=== PATIENT | female | born 1940 | race Caucasian/White ===

== ENCOUNTER 2018-10-03 13:15 | Inpatient (IN) ==
[2018-09-28 11:05] LABS: Basophils # 0.1 10*3/uL (0.0-0.2); Basophils % 0.8 % (0.0-0.8); Eosinophils # 0.1 10*3/uL (0.0-0.87); Hemoglobin 11.4 GM/DL (12.0-16.0); Immature Granulocytes % 0.3 %; Immature Granulocytes Absolute 0.02 #; Lymphocytes # 1.3 10*3/uL (1.4-4.0); Lymphocytes % 21.2 % (21.3-54.2); Mean Corpuscular HGB Conc 30.8 GM/DL (32-36); Mean Corpuscular Hemoglobin 29 PG (27-34); Mean Corpuscular Volume 93.7 FL (87-102); Mean Platelet Volume 9.2 FL (9.6-12.0); Monocytes # 0.7 10*3/uL (0.11-0.8); Monocytes % 10.8 % (1.7-12.7); Neutrophils % 64.9 % (38.7-73.9); Platelet Count 214 T/CUMM (130-400); Red Blood Count 3.95 MC/CUMM (3.8-5.5); Red Cell Distribution Width 13.1 % (9.3-17.3); White Blood Count 6.1 T/CUMM (4-12)
[2018-09-28 11:42] LABS: Albumin 3.9 G/DL (3.4-5.0); Bilirubin,Total 0.6 MG/DL (0.2-1.0); Calcium 9.9 MG/DL (8.5-10.1); Osmolality,Calculated 281.8 MOS/KG (273-304); Potassium 5.1 MMOL/L (3.5-5.1); Total Protein 7.2 G/DL (6.4-8.3)
[~2018-10-03 13:15] MED LIST: ceFAZolin 1,000 MG in SYRINGE 1 EACH IV ONE
[2018-10-09] MEDS ORDERED: ceFAZolin 1,000 MG VIAL ONE (05:45)
[2018-10-09] MEDS ORDERED: LACTATED RINGERS 1,000 ML IV SCH (06:00)
[2018-10-09] MEDS ORDERED: HEPARIN/NACL 0.9% 2 UNITS/ML 500 ML IV ONE ×2 (07:05→10:27)
[2018-10-09] MEDS ORDERED: PHENYLEPHRINE DRIP 20 MG/250 ML PREMIX IV ONE (07:05)
[2018-10-09] MEDS ORDERED: SODIUM CHLORIDE 0.9% 1,000 ML IV ONE (07:05)
[2018-10-09] MEDS ORDERED: NITROGLYCERIN DRIP 50 MG/250 ML BOTTLE IV ONE (07:05)
[2018-10-09] MEDS ORDERED: LIDOCAINE 1% 20 ML VIAL ONE (07:48)
[2018-10-09] MEDS ORDERED: HEPARIN 5,000 UNIT/1 ML VIAL ONE (07:48)
[2018-10-09] MEDS ORDERED: NALOXONE 0.4 MG/ML VIAL IV PRN (10:11)
[2018-10-09] MEDS ORDERED: PROMETHAZINE 25 MG/1 ML VIAL IM PRN (10:11)
[2018-10-09] MEDS ORDERED: GLUCAGON 1 MG VIAL IM PRN (10:11)
[2018-10-09] MEDS ORDERED: oxyCODONE/ACETAMINOPHEN 5-325 MG TABLET PO PRN ×2 (10:11)
[2018-10-09] MEDS ORDERED: HYDROmorphone 2 MG/1 ML VIAL IV PRN ×2 (10:11)
[2018-10-09] MEDS ORDERED: DEXTROSE 50% 25 GM/50 ML SYRINGE IV PRN (10:11)
[2018-10-09] MEDS ORDERED: ALBUTEROL/IPRATROPIUM 3 ML NEB RESP TX PRN (10:14)
[2018-10-09] MEDS ORDERED: FLUTICASONE/SALMETEROL 250-50 DISKUS 14 DOSE INH PRN (10:14)
[2018-10-09] MEDS ORDERED: PROTAMINE SULFATE 50 MG/5 ML VIAL IV ONE (10:28)
[2018-10-09] MEDS ORDERED: ETOMIDATE 40 MG/20 ML VIAL IV ONE (10:28)
[2018-10-09] MEDS ORDERED: ROCURONIUM 100 MG/10 ML VIAL IV ONE (10:29)
[2018-10-09] MEDS ORDERED: HEPARIN 10,000 UNIT/10 ML VIAL ONE (10:29)
[2018-10-09] MEDS ORDERED: SEVOFLURANE 1 UNIT/15 MINUTE INH ONE (10:30)
[2018-10-09] MEDS ORDERED: PHENYLEPHRINE 1 MG/10 ML SYRINGE IV ONE (10:30)
[2018-10-09] MEDS ORDERED: ALBUMIN 5% 12.5 GM/250 ML VIAL IV ONE (10:31)
[2018-10-09] MEDS ORDERED: ONDANSETRON 4 MG/2 ML VIAL ONE (10:50)
[2018-10-09] MEDS ORDERED: HYDROmorphone 2 MG/1 ML VIAL ONE (10:50)
[2018-10-09] MEDS: ONDANSETRON 4 MG/2 ML VIAL IV PRN ×2 (10:51→11:32)
[2018-10-09] MEDS ORDERED: HYDROmorphone 2 MG/1 ML VIAL IV ONE (11:07)
[2018-10-09] MEDS: PHENYLEPHRINE DRIP 40 MG/250 ML PREMIX IV SCH (11:45)
[2018-10-09] MEDS: NITROPRUSSIDE 100 MG in DEXTROSE 5% 250 ML IV SCH (12:07)
[2018-10-09] MEDS: LACTATED RINGERS 1,000 ML IV SCH ×2 (12:07→18:36)
[2018-10-09] MEDS: INSULIN REGULAR 100 UNIT/ML SUBCUT PRN ×2 (17:21→19:47)
[2018-10-09] MEDS: GABAPENTIN 300 MG CAPSULE PO SCH (20:44)
[2018-10-09] MEDS: INSULIN REGULAR 100 UNIT/ML SUBCUT SCH (21:58)
[2018-10-10] MEDS: INSULIN REGULAR 100 UNIT/ML SUBCUT SCH ×3 (01:09→12:04)
[2018-10-10] MEDS: LACTATED RINGERS 1,000 ML IV SCH ×2 (04:42→15:44)
[2018-10-10] MEDS ORDERED: LEVOTHYROXINE 150 MCG TABLET PO SCH (07:00)
[2018-10-10] MEDS: GABAPENTIN 300 MG CAPSULE PO SCH (08:56)
[2018-10-10] MEDS ORDERED: DILTIAZEM CD 240 MG CAPSULE PO SCH (09:00)
[2018-10-10] MEDS ORDERED: ASPIRIN EC 81 MG TABLET PO SCH (09:00)
[2018-10-10] MEDS ORDERED: CLOPIDOGREL 75 MG TABLET PO SCH (09:00)
[2018-10-10] MEDS ORDERED: MONTELUKAST 10 MG TABLET PO SCH (09:00)
[2018-10-10] MEDS ORDERED: FUROSEMIDE 40 MG TABLET PO SCH (09:00)
[2018-10-10] MEDS ORDERED: POTASSIUM CHLORIDE 10 MEQ TABLET PO SCH (09:00)
[2018-10-10] MEDS ORDERED: LOSARTAN 50 MG TABLET PO SCH (09:00)
[2018-10-10] MEDS ORDERED: PANTOPRAZOLE 40 MG TABLET PO SCH (09:00)
[2018-10-10] MEDS ORDERED: ACETAMINOPHEN 325 MG TABLET PO PRN ×2 (11:03)
[2018-10-10] MEDS: NITROPRUSSIDE 100 MG in DEXTROSE 5% 250 ML IV SCH (11:20)
[2018-10-10] MEDS: PHENYLEPHRINE DRIP 40 MG/250 ML PREMIX IV SCH (11:21)
[2018-10-10 17:28] VITALS: BP 142/53
== END 2018-10-10 17:38 | disposition home or self-care (01) | DRG 38 ==
LOC: N.SDSINP 10-09 06:44 → N.CC 10-09 10:17
PROVIDERS: ADMIT Surgery; ATTEND Surgery